=== PATIENT | male | born 1960 | race Hispanic/Latino ===

== ENCOUNTER → 2017-10-22 | Outpatient (CLI) | payer MEDICARE ==
[~2017-10-22] MED LIST: ASPI-555 PO; BUDE10.2 IH; ESOM40CA PO; GLIP1TAB6 PO; IOPAMIDOL-370 75 ML VIAL IV ONE; LISI1TAB13 PO; ROSU40 PO; SERT100T12 PO; VERA360C2 PO; [UNRECOGNIZED DRUG - OTHER] PO
== END | disposition home or self-care (01) ==
LOC: OIH 08:50
PROVIDERS: ATTEND Internal Medicine Cardiovascular Disease
DX: I65.23 Occlusion and stenosis of bilateral carotid arteries (principal)
CPT/HCPCS: 70498; Q9967

== ENCOUNTER → 2018-06-04 | Outpatient (CLI) | payer MEDICARE ==
[~2018-06-04] MED LIST changes: -IOPAMIDOL-370 75 ML VIAL IV ONE
== END | disposition home or self-care (01) ==
LOC: SHCH 10:05
PROVIDERS: ATTEND Internal Medicine Cardiovascular Disease
DX: I65.21 Occlusion and stenosis of right carotid artery (principal); I10 Essential (primary) hypertension; E11.9 Type 2 diabetes mellitus without complications; E78.5 Hyperlipidemia, unspecified; M19.90 Unspecified osteoarthritis, unspecified site; J45.909 Unspecified asthma, uncomplicated; Z87.891 Personal history of nicotine dependence
CPT/HCPCS: 93880

== ENCOUNTER 2018-11-25 12:35 | Inpatient (IN) | payer MEDICARE ==
[~2018-11-25] VITALS: Ht 157.5 cm; Wt 56.7 kg
[2018-11-25 13:27] LABS: BASOPHILS % (AUTO) 0.3 % (0.0-5.0); EOSINOPHILS % (AUTO) 1.1 % (0.0-8.0); HEMATOCRIT 25.4 % (42-54); LYMPHOCYTES % (AUTO) 20.1 % (21.0-51.0); MEAN CORPUSCULAR HEMOGLOBIN 29.9 pg (27.0-33.0); MEAN CORPUSCULAR HGB CONC 33.4 g/dL (32.0-36.0); MEAN CORPUSCULAR VOLUME 89.6 fL (79-99); MONOCYTES % (AUTO) 7.4 % (3.0-13.0); NEUTROPHILS % (AUTO) 71.1 % (40.0-77.0); PLATELET COUNT (AUTO) 560 K/uL (130-400); RED BLOOD CELL COUNT(AUTO) 2.83 MIL/uL (4.50-6.20); RED CELL DISTRIBUTION WIDTH 15.4 % (11.0-15.5)
[2018-11-25 13:32] LABS: ALBUMIN 1.8 g/dL (3.5-5.0); BILIRUBIN,TOTAL 0.2 mg/dL (0.2-1.0); CREATININE 0.7 mg/dL (0.5-1.5); TOTAL PROTEIN, SERUM 6.4 g/dL (6.0-8.3)
[2018-11-25 13:38] LABS: POTASSIUM 2.9 mmol/L (3.5-5.1)
[2018-11-25] MEDS ORDERED: ACETAMINOPHEN EXTRA STRENGTH 500 MG TABLET ONE (14:01)
[2018-11-25] MEDS ORDERED: POTASSIUM CHLORIDE 20 MEQ ERTAB PO ONE (14:47)
[2018-11-25] MEDS ORDERED: POTASSIUM CHLORIDE 10% ELIXIR 20 MEQ/15 ML UDCUP PO PRN (18:45)
[2018-11-25 18:57] LABS: HEMOGLOBIN A1C 8.1 % (4.0-6.0)
[2018-11-25] MEDS: SODIUM CHLORIDE 0.9% 1000ML 1,000 ML IV SCH (19:29)
[2018-11-25] MEDS ORDERED: ACETAMINOPHEN 325 MG TAB PO PRN ×2 (19:30)
[2018-11-25] MEDS ORDERED: DEXTROSE 50%-WATER 50 ML DISP.SYRIN IV PRN (19:30)
[2018-11-25] MEDS ORDERED: GLUCAGON 1MG KIT 1 MG ML IM PRN (19:30)
[2018-11-25] MEDS ORDERED: ONDANSETRON HCL 4 MG/2 ML VIAL IV PRN (19:30)
[2018-11-25] MEDS ORDERED: MAGNESIUM 2GM PREMIX 50ML 50 ML IV ONE (19:42)
[2018-11-25] MEDS: INSULIN HUMULIN R 100 UNIT/ML 3ML SQ SCH (21:00)
[2018-11-25] MEDS: FAMOTIDINE 20MG TAB 20 MG TAB PO SCH (21:00)
[2018-11-25 21:10] LABS: % IRON SATURATION 16.7 % (30-44)
[2018-11-25] MEDS ORDERED: FAMOTIDINE 20MG TAB 20 MG TAB ONE (21:39)
[2018-11-25] MEDS ORDERED: HYDROCODONE/ACETAMINOPHEN 10/325 MG TAB ONE (21:40)
[2018-11-25] MEDS: IPRATROPIUM/ALBUTEROL SULFATE 3 ML SOLUTION IH PRN (21:43)
[2018-11-25 22:47] LABS: CREATININE 0.5 mg/dL (0.5-1.5); POTASSIUM 3.9 mmol/L (3.5-5.1)
--- NOTE | 2018-11-25 23:45 | NUR ---
MULTIPLE WOUNDS/REFER TO PICTURES IN CHART: ST 3-RIGHT UPPER POSTERIOR THIGH-19.0 CM (L) X 10.0 CM (W) ST 3 COCCYX-9.0 CM (L) X 4.0 CM (W) ST 2 LEFT BUTTOCK-8.0 CM (L) X 4.0 CM (W) ST 4 LEFT STUMP- 8.0 CM X 10.0 CM (W) & 4.[address] 2 LEFT HIP 3.5 CM (L) X 1.5 CM (W) ST 2 LEFT LOWER BUTTOCK 3.5 CM (L) X 1.5 CM (W)
--- NOTE | 2018-11-26 01:00 | NUR ---
RECTAL TUBE-PATIENT WITH DIARRHEA AND MULTIPLE BODY WOUNDS. NO IMPACTION NOTED AND TUBE WAS INSERTED TO HELP PROMOTE WOUND HEALING. TUBE WAS IRRIGATED TO CHECK FOR PLACEMENT AND FLUSHED, BUT NOTED WITH PERSISTENT STOOL LEAKAGE AROUND RECTAL TUBE. WILL CONTINUE TO MONITOR.
[2018-11-26 01:15] VITALS: BP 124/60
[2018-11-26] MEDS ORDERED: INSU100I21 SQ (02:30)
[2018-11-26] MEDS ORDERED: HYDR-4453 PO (02:30)
[2018-11-26] MEDS ORDERED: CHOL100018 PO (02:30)
[2018-11-26] MEDS ORDERED: IPRAHFA IH (02:30)
[2018-11-26] MEDS ORDERED: CYAN250010 PO (02:30)
[2018-11-26] MEDS ORDERED: CARV6.25 PO (02:30)
[2018-11-26] MEDS ORDERED: ATOR40TA71 PO (02:30)
[2018-11-26] MEDS: SODIUM CHLORIDE 0.9% 1000ML 1,000 ML IV SCH ×2 (05:29→15:43)
[2018-11-26 05:35] LABS: MEAN CORPUSCULAR HEMOGLOBIN 31.3 pg (27.0-33.0); MEAN CORPUSCULAR HGB CONC 34.5 g/dL (32.0-36.0); MEAN CORPUSCULAR VOLUME 90.6 fL (79-99); PLATELET COUNT (AUTO) 600 K/uL (130-400); RED BLOOD CELL COUNT(AUTO) 2.65 MIL/uL (4.50-6.20); RED CELL DISTRIBUTION WIDTH 15.5 % (11.0-15.5); WHITE BLOOD COUNT (AUTO) 9.2 K/uL (4.8-10.8)
[2018-11-26 05:36] LABS: ALBUMIN 1.7 g/dL (3.5-5.0); BILIRUBIN,TOTAL 0.3 mg/dL (0.2-1.0); CREATININE 0.5 mg/dL (0.5-1.5); MAGNESIUM 1.6 mg/dL (1.80-2.40); POTASSIUM 3.6 mmol/L (3.5-5.1); TOTAL PROTEIN, SERUM 5.9 g/dL (6.0-8.3)
[2018-11-26 05:52] VITALS: BP 135/74
[2018-11-26] MEDS: HYDROCODONE/ACETAMINOPHEN 5/325 MG TAB PO PRN ×2 (06:01→21:52)
[2018-11-26 06:14] LABS: BAND NEUTROPHILS % (MANUAL) 13 % (0-2); EOSINOPHILS % (MANUAL) 1 % (1-6); LYMPHOCYTES % (MANUAL) 9 % (22-44); MAN.DIFF COMMENT-IMPRESSION MANUAL DIFFERENTIAL; MONOCYTES % (MANUAL) 6 % (2-9); PLATELET MORPHOLOGY COMMENT INCREASED; REACTIVE LYMPHOCYTES 1 % (0-0); SEGMENTED NEUTROPHILS % 70 % (40-70)
[2018-11-26] MEDS: INSULIN HUMULIN R 100 UNIT/ML 3ML SQ SCH ×4 (07:30→21:00)
[2018-11-26 08:00] VITALS: BP 147/78
--- NOTE | 2018-11-26 10:00 | NUR ---
DR. MARTINEZ VISITED WITH PATIENT. ORDERS TO CONSULT DR. PARADA. NEW ORDERS RECEIVED AND CARRIED OUT.
[2018-11-26] MEDS ORDERED: VANCOMYCIN PROTOCOL PER PHARMACY IV SCH (10:15)
[2018-11-26] MEDS: FAMOTIDINE 20MG TAB 20 MG TAB PO SCH ×2 (10:48→21:46)
[2018-11-26] MEDS: ENOXAPARIN SODIUM 30 MG/0.3 ML SQ SCH (10:49)
[2018-11-26 12:00] VITALS: BP 145/77
--- NOTE | 2018-11-26 12:00 | NUR ---
DCP CM met with pt discussed dc plans. Pt states he is independent prior to admission, lives at home with spouse and children. Pt has a walker, wheelchair, electric wheelchair, shower chair, active w/[facility] for wound care daily, and has a provider 3hrs daily. Pt feels safe to go back home, spouse and children able to assist with transportation and needs as necessary. DC plan to home once stable. CM to cont to follow up. Addendum: 11/26/18 at 1333 by LEONOR MARTINEZ LVN CM Amended: Links added.
--- NOTE | 2018-11-26 12:04 | NUR ---
GI CONSULT DR. ROBLEDO CALLED REGARDING PATIENT STATUS AND HX. POC IS COLONOSCOPY FOR TOMORROW. PER DR. ROBLEDO, SHE WILL PUT THE ORDERS FOR THIS PROCEDURE. NO NEW ORDERS RECEIVED.
[2018-11-26 12:47] LABS: BASOPHILS % (AUTO) 0.5 % (0.0-5.0); EOSINOPHILS % (AUTO) 0.3 % (0.0-8.0); HEMATOCRIT 25.2 % (42-54); LYMPHOCYTES % (AUTO) 17.2 % (21.0-51.0); MEAN CORPUSCULAR HEMOGLOBIN 29.8 pg (27.0-33.0); MEAN CORPUSCULAR VOLUME 90.4 fL (79-99); MONOCYTES % (AUTO) 9.5 % (3.0-13.0); NEUTROPHILS % (AUTO) 72.5 % (40.0-77.0); PLATELET COUNT (AUTO) 553 K/uL (130-400); RED BLOOD CELL COUNT(AUTO) 2.78 MIL/uL (4.50-6.20); RED CELL DISTRIBUTION WIDTH 15.6 % (11.0-15.5)
[2018-11-26 12:53] LABS: CREATININE 0.4 mg/dL (0.5-1.5); POTASSIUM 3.2 mmol/L (3.5-5.1)
--- NOTE | 2018-11-26 13:00 | NUR ---
RECORDS FROM [facility] REQUESTED.
[2018-11-26 13:02] LABS: INR 1.01 (0.85-1.15); PROTHROMBIN TIME 10.6 SEC (9.6-11.6)
--- NOTE | 2018-11-26 13:23 | NUR ---
CM Note: Declined SNF placement CM met with pt in room, discussed [facility] for placement pt will need abx and woundcare. Per pt to call spouse as she signs his consent, pt states he is unable to make decision and his spouse makes all the decision as sometimes he is not all there in the head. Called spouse in room as per pt request. Spoke to Anitha Alegria discussed [facility], spouse declined placement, spouse stated pt gets depressed if he is not in his normal environment and if he doesn't see his family every day. Spouse agreeable to home w/HH to infuse abx and cont w/woundcare. Primary nurse aware. CM to cont to follow up.
[2018-11-26] MEDS ORDERED: VANCOMYCIN 1.5 GM in SODIUM CHLORIDE 0.9% 250 ML IV ONE (14:00)
[2018-11-26] MEDS ORDERED: COMPOUND IV REFRIGERATED 1 EACH IVSOLN MISC PRN (14:00)
--- NOTE | 2018-11-26 14:48 | NUR ---
RD Notification Patient with Clear Liquid, 75gm CCD, Heart Healthy diet. Patient NPO this AM for imaging. Diet resumed for lunch. Patient with multiple pressure ulcers x 4; Rec to add Ravi BID, 60mL ProMod at Lunch, Vitamin C, Zinc for wound healing support. Patient family agrees. Patient monitored labs: Na 131, CO2 17, Mg 1.60, Alb 1.7, Cl 100, Glu 208, Alk Phos 265. RD to continue to monitor. Please notify RD as nutritional concerns arise. Thank you. Addendum: 11/26/18 at [address] Amended: Links added.
[2018-11-26 16:00] VITALS: BP 153/76
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
[2018-11-26] MEDS ORDERED: PEG 3350/NA SULF,BICARB,CL/KCL 4000 ML SOLN PO SCH ×2 (17:00)
--- NOTE | 2018-11-26 17:06 | NUR ---
[facility] consult Patient assessed as ordered. Patient with multiple pressure areas. Left hip stump with bone exposure and necrotic tissue in wound bed. Recommendation for surgical consult submitted. [facility] recommendation for wound care also submitted. Patient will be transferred to specialty air bed today.
--- NOTE | 2018-11-26 17:30 | NUR ---
DR. PARADA VISITED WITH PATIENT. SINCE PATIENT IS ALREADY SEEING A ORTHOPEDIC IN [place], PLAN IS TO F/U WITH THAT DOCTOR.
[2018-11-26 20:00] VITALS: BP 149/82
[2018-11-26] MEDS: POTASSIUM CHLORIDE 20 MEQ ERTAB PO PRN (21:46)
[2018-11-27] VITALS: BP 135/77
[2018-11-27] MEDS: SODIUM CHLORIDE 0.9% 1000ML 1,000 ML IV SCH ×2 (01:25→11:31)
[2018-11-27] MEDS: POTASSIUM CHLORIDE 20MEQ/100ML 100 ML IV PRN (01:32)
[2018-11-27] MEDS: LIDOCAINE HCL-MPF 1% 2ML VIAL IVP PRN (01:32)
[2018-11-27 03:50] VITALS: BP 142/70
[2018-11-27 05:33] LABS: BASOPHILS % (AUTO) 0.3 % (0.0-5.0); EOSINOPHILS % (AUTO) 0.2 % (0.0-8.0); HEMATOCRIT 25.6 % (42-54); LYMPHOCYTES % (AUTO) 13.5 % (21.0-51.0); MEAN CORPUSCULAR HGB CONC 33.8 g/dL (32.0-36.0); MEAN CORPUSCULAR VOLUME 88.9 fL (79-99); MONOCYTES % (AUTO) 6.9 % (3.0-13.0); NEUTROPHILS % (AUTO) 79.1 % (40.0-77.0); PLATELET COUNT (AUTO) 595 K/uL (130-400); RED BLOOD CELL COUNT(AUTO) 2.88 MIL/uL (4.50-6.20); RED CELL DISTRIBUTION WIDTH 15.5 % (11.0-15.5); WHITE BLOOD COUNT (AUTO) 9.6 K/uL (4.8-10.8)
[2018-11-27 05:45] LABS: CREATININE 0.4 mg/dL (0.5-1.5); POTASSIUM 3.2 mmol/L (3.5-5.1)
[2018-11-27] MEDS: VANCOMYCIN 1GM+NS 250ML 250 ML IV SCH ×2 (06:25→17:04)
[2018-11-27] MEDS: INSULIN HUMULIN R 100 UNIT/ML 3ML SQ SCH ×4 (06:58→21:00)
[2018-11-27 08:00] VITALS: BP 129/63
[2018-11-27] MEDS: FAMOTIDINE 20MG TAB 20 MG TAB PO SCH ×2 (09:00→20:32)
[2018-11-27] MEDS: ENOXAPARIN SODIUM 30 MG/0.3 ML SQ SCH (09:00)
[2018-11-27] MEDS: MAGNESIUM 2GM PREMIX 50ML 50 ML IV PRN ×2 (09:52→20:32)
--- NOTE | 2018-11-27 11:00 | NUR ---
WOUND DRESSING CHANGED PER [facility] RECOMENDATIONS. PATIENT TOLERATED WELL. NORCO ADMINISTERED PER EMAR. FOR PAIN
[2018-11-27] MEDS ORDERED: PEG 3350/NA SULF,BICARB,CL/KCL 4000 ML SOLN PO ONE (11:55)
[2018-11-27 12:00] VITALS: BP 137/74
[2018-11-27] MEDS: POTASSIUM CHLORIDE 20 MEQ ERTAB PO PRN ×5 (12:52→23:15)
[2018-11-27] MEDS: HYDROCODONE/ACETAMINOPHEN 5/325 MG TAB PO PRN ×2 (13:21→20:31)
[2018-11-27 16:00] VITALS: BP 118/53
[2018-11-27] MEDS ORDERED: PEG 3350/NA SULF,BICARB,CL/KCL 4000 ML SOLN PO SCH (19:00)
[2018-11-27 19:31] LABS: CREATININE 0.6 mg/dL (0.5-1.5)
[2018-11-27 19:34] LABS: POTASSIUM 2.8 mmol/L (3.5-5.1)
[2018-11-27 19:48] LABS: INR 1.01 (0.85-1.15); PROTHROMBIN TIME 10.6 SEC (9.6-11.6)
[2018-11-27 19:54] LABS: BASOPHILS % (AUTO) 0.2 % (0.0-5.0); EOSINOPHILS % (AUTO) 0.3 % (0.0-8.0); HEMATOCRIT 25.9 % (42-54); LYMPHOCYTES % (AUTO) 20.8 % (21.0-51.0); MEAN CORPUSCULAR HEMOGLOBIN 30.2 pg (27.0-33.0); MEAN CORPUSCULAR HGB CONC 33.7 g/dL (32.0-36.0); MEAN CORPUSCULAR VOLUME 89.7 fL (79-99); MONOCYTES % (AUTO) 8.5 % (3.0-13.0); NEUTROPHILS % (AUTO) 70.2 % (40.0-77.0); PLATELET COUNT (AUTO) 633 K/uL (130-400); RED BLOOD CELL COUNT(AUTO) 2.89 MIL/uL (4.50-6.20); RED CELL DISTRIBUTION WIDTH 15.6 % (11.0-15.5)
[2018-11-27] MEDS: SODIUM HYPOCHLORITE 0.25% [HALF STRENGTH] 473 ML TOPICAL SOLN TP SCH (20:32)
[2018-11-27 22:07] VITALS: BP 160/77
[2018-11-28] VITALS (22 sets, daily range): BP systolic 113–160; BP diastolic 48–81
[2018-11-28] MEDS: POTASSIUM CHLORIDE 20 MEQ ERTAB PO PRN ×2 (00:27→22:55)
[2018-11-28] MEDS: LIDOCAINE HCL-MPF 1% 2ML VIAL IVP PRN (00:27)
[2018-11-28] MEDS: POTASSIUM CHLORIDE 20MEQ/100ML 100 ML IV PRN (00:27)
[2018-11-28] MEDS: VANCOMYCIN 1GM+NS 250ML 250 ML IV SCH ×2 (05:26→16:10)
[2018-11-28] MEDS: SODIUM CHLORIDE 0.9% 1000ML 1,000 ML IV SCH ×2 (05:27→22:31)
[2018-11-28] MEDS: HYDROCODONE/ACETAMINOPHEN 5/325 MG TAB PO PRN ×3 (05:27→22:55)
[2018-11-28 05:56] LABS: BASOPHILS % (AUTO) 0.4 % (0.0-5.0); EOSINOPHILS % (AUTO) 0.7 % (0.0-8.0); LYMPHOCYTES % (AUTO) 18.6 % (21.0-51.0); MEAN CORPUSCULAR HEMOGLOBIN 30.3 pg (27.0-33.0); MONOCYTES % (AUTO) 10.2 % (3.0-13.0); NEUTROPHILS % (AUTO) 70.1 % (40.0-77.0); PLATELET COUNT (AUTO) 562 K/uL (130-400); RED CELL DISTRIBUTION WIDTH 15.3 % (11.0-15.5); WHITE BLOOD COUNT (AUTO) 7.5 K/uL (4.8-10.8)
[2018-11-28 06:04] LABS: CREATININE 0.4 mg/dL (0.5-1.5); POTASSIUM 3.4 mmol/L (3.5-5.1)
[2018-11-28] MEDS: INSULIN HUMULIN R 100 UNIT/ML 3ML SQ SCH ×3 (06:43→21:00)
--- NOTE | 2018-11-28 08:00 | NUR ---
AM SHIFT ASSESSMENT.NPO FOR COLONOSCOPY TODAY.
[2018-11-28] MEDS: MAGNESIUM 2GM PREMIX 50ML 50 ML IV PRN (08:14)
[2018-11-28] MEDS: ENOXAPARIN SODIUM 30 MG/0.3 ML SQ SCH (08:15)
[2018-11-28] MEDS: FAMOTIDINE 20MG TAB 20 MG TAB PO SCH ×2 (08:15→22:32)
[2018-11-28] MEDS: SODIUM HYPOCHLORITE 0.25% [HALF STRENGTH] 473 ML TOPICAL SOLN TP SCH (09:00)
--- NOTE | 2018-11-28 16:00 | NUR ---
WOUND CARE DONE PER ORDERS IN CHART.SPOUSE IN ROOM AND ASST.
[2018-11-28] MEDS: LEVOFLOXACIN 750 MG/D5W 150 ML 150 ML IV SCH (16:10)
[2018-11-28] MEDS ORDERED: VANCOMYCIN 1.25 GM in SODIUM CHLORIDE 0.9% 250 ML IV SCH (18:00)
--- NOTE | 2018-11-28 18:53 | NUR ---
2 ATTEMPTS MADE TO ACCESS A NEW LINE WITH NO SUCCESS.WILL ASK FOR HELP FROM PM NURSE.
[2018-11-28] MEDS: VANCOMYCIN 1.25 GM in SODIUM CHLORIDE 0.9% 250 ML IV SCH (22:31)
[2018-11-29] VITALS: BP 150/84
[2018-11-29] MEDS ORDERED: HYDROCODONE/ACETAMINOPHEN 5/325 MG TAB PO ONE (03:00)
[2018-11-29] MEDS: HYDROCODONE/ACETAMINOPHEN 5/325 MG TAB PO PRN ×4 (03:03→21:30)
[2018-11-29] MEDS: SODIUM CHLORIDE 0.9% 1000ML 1,000 ML IV SCH ×3 (03:29→23:29)
[2018-11-29 04:00] VITALS: BP 161/90
[2018-11-29 05:15] LABS: MAGNESIUM 1.6 mg/dL (1.80-2.40); POTASSIUM 3.4 mmol/L (3.5-5.1)
[2018-11-29 07:00] VITALS: BP 154/76
[2018-11-29] MEDS: INSULIN HUMULIN R 100 UNIT/ML 3ML SQ SCH ×4 (07:30→21:00)
[2018-11-29] MEDS: ***HM***(Cholecalciferol (Vitamin D3) (Vitamin D3) 1,000 UNIT) PO SCH (09:00)
[2018-11-29] MEDS: FAMOTIDINE 20MG TAB 20 MG TAB PO SCH ×2 (10:14→21:16)
[2018-11-29] MEDS: CYANOCOBALAMIN (VITAMIN B-12) 1,000 MCG TABLET PO SCH (10:14)
[2018-11-29] MEDS: SODIUM HYPOCHLORITE 0.25% [HALF STRENGTH] 473 ML TOPICAL SOLN TP SCH (10:14)
[2018-11-29] MEDS: CARVEDILOL 6.25 MG TABLET PO SCH ×2 (10:15→21:16)
[2018-11-29] MEDS: ENOXAPARIN SODIUM 30 MG/0.3 ML SQ SCH (10:16)
[2018-11-29] MEDS: VANCOMYCIN 1.25 GM in SODIUM CHLORIDE 0.9% 250 ML IV SCH ×2 (10:46→21:16)
[2018-11-29 11:00] VITALS: BP 154/75
[2018-11-29] MEDS: LEVOFLOXACIN 750 MG/D5W 150 ML 150 ML IV SCH (14:30)
[2018-11-29 16:00] VITALS: BP 158/79
[2018-11-29 19:00] VITALS: BP 155/81
[2018-11-29] MEDS: ATORVASTATIN CALCIUM 40 MG TABLET PO SCH (21:16)
[2018-11-30] VITALS: BP 131/75
[2018-11-30] MEDS ORDERED: TEMAZEPAM 15 MG CAPSULE ONE (00:26)
[2018-11-30] MEDS ORDERED: TEMAZEPAM 15 MG CAPSULE PO ONE (00:30)
[2018-11-30 04:00] VITALS: BP 144/73
[2018-11-30] MEDS: INSULIN HUMULIN R 100 UNIT/ML 3ML SQ SCH ×4 (06:38→21:00)
[2018-11-30 06:39] LABS: BASOPHILS % (AUTO) 0.3 % (0.0-5.0); EOSINOPHILS % (AUTO) 1.2 % (0.0-8.0); LYMPHOCYTES % (AUTO) 23.8 % (21.0-51.0); MEAN CORPUSCULAR HEMOGLOBIN 29.6 pg (27.0-33.0); MEAN CORPUSCULAR HGB CONC 33.1 g/dL (32.0-36.0); MEAN CORPUSCULAR VOLUME 89.6 fL (79-99); MONOCYTES % (AUTO) 9.2 % (3.0-13.0); NEUTROPHILS % (AUTO) 65.5 % (40.0-77.0); PLATELET COUNT (AUTO) 560 K/uL (130-400); RED BLOOD CELL COUNT(AUTO) 2.57 MIL/uL (4.50-6.20); RED CELL DISTRIBUTION WIDTH 14.9 % (11.0-15.5); WHITE BLOOD COUNT (AUTO) 6.4 K/uL (4.8-10.8)
[2018-11-30 06:49] LABS: CREATININE 0.3 mg/dL (0.5-1.5); MAGNESIUM 1.4 mg/dL (1.80-2.40)
[2018-11-30 07:00] VITALS: BP 151/72
[2018-11-30 08:11] LABS: POTASSIUM 2.7 mmol/L (3.5-5.1)
[2018-11-30] MEDS: ***HM***(Cholecalciferol (Vitamin D3) (Vitamin D3) 1,000 UNIT) PO SCH (09:00)
[2018-11-30] MEDS: CYANOCOBALAMIN (VITAMIN B-12) 1,000 MCG TABLET PO SCH (09:00)
[2018-11-30] MEDS: POTASSIUM CHLORIDE 20 MEQ ERTAB PO PRN ×5 (09:01→16:47)
[2018-11-30] MEDS: FAMOTIDINE 20MG TAB 20 MG TAB PO SCH ×2 (09:01→21:07)
[2018-11-30] MEDS: POTASSIUM CHLORIDE 20MEQ/100ML 100 ML IV PRN ×2 (09:02→16:48)
[2018-11-30] MEDS: LIDOCAINE HCL-MPF 1% 2ML VIAL IVP PRN ×2 (09:02→16:47)
[2018-11-30] MEDS: CARVEDILOL 6.25 MG TABLET PO SCH ×2 (09:02→21:07)
[2018-11-30] MEDS: ENOXAPARIN SODIUM 30 MG/0.3 ML SQ SCH (09:04)
[2018-11-30] MEDS: SODIUM HYPOCHLORITE 0.25% [HALF STRENGTH] 473 ML TOPICAL SOLN TP SCH (09:04)
[2018-11-30] MEDS: VANCOMYCIN 1.25 GM in SODIUM CHLORIDE 0.9% 250 ML IV SCH (10:59)
[2018-11-30 11:00] VITALS: BP 147/76
--- NOTE | 2018-11-30 11:38 | NUR ---
RD Follow-up Note Patient with multiple severe wounds; Rec to add Ravi BID and 60mL ProMod at Lunch. Rec to add vitamin C and Zinc daily for wound healing support. Patient with poor PO intake; Rec to add Glucerna TID with meals for increased oral intake. Patient LBM 11/29/18. Patient monitored labs: Ba 135, K 3.4, BUN 4, Cr 0.4, Glu 122, Ca 7.8, Mg 1.60. RD to continue to monitor. Please notify RD as nutritional concerns arise. Thank you. Addendum: 11/30/18 at [address] RD Amended: Links added.
[2018-11-30] MEDS ORDERED: VANCOMYCIN 1.25 GM in SODIUM CHLORIDE 0.9% 250 ML IV SCH (12:15)
[2018-11-30] MEDS: HYDROCODONE/ACETAMINOPHEN 5/325 MG TAB PO PRN ×3 (12:49→23:13)
[2018-11-30] MEDS: LEVOFLOXACIN 750 MG/D5W 150 ML 150 ML IV SCH (14:33)
[2018-11-30 16:00] VITALS: BP 136/70
[2018-11-30 19:00] VITALS: BP 158/72
--- NOTE | 2018-11-30 20:30 | NUR ---
RECTAL TUBE RECTAL TUBE DISCONTINUED ORDERED. PATIENT TOLERATED WELL
[2018-11-30] MEDS: ATORVASTATIN CALCIUM 40 MG TABLET PO SCH (21:07)
--- NOTE | 2018-11-30 22:00 | NUR ---
DRESSING CHANGE SPOUSE DID DRESSING CHANGE. PATIENT MEDICATED FOR PAIN. PATIENT TOLERATED FAIRLY WELL
[2018-11-30] MEDS: IPRATROPIUM/ALBUTEROL SULFATE 3 ML SOLUTION IH PRN (22:32)
[2018-11-30] MEDS: VANCOMYCIN 1GM+NS 250ML 250 ML IV SCH (23:05)
[2018-12-01] VITALS: BP 134/73
[2018-12-01 04:00] VITALS: BP 135/57
[2018-12-01 05:31] LABS: MAGNESIUM 1.4 mg/dL (1.80-2.40)
[2018-12-01] MEDS: INSULIN HUMULIN R 100 UNIT/ML 3ML SQ SCH ×2 (06:15→11:30)
[2018-12-01 07:06] LABS: BASOPHILS % (AUTO) 0.6 % (0.0-5.0); HEMATOCRIT 21.3 % (42-54); LYMPHOCYTES % (AUTO) 27.1 % (21.0-51.0); MEAN CORPUSCULAR HEMOGLOBIN 30.4 pg (27.0-33.0); MEAN CORPUSCULAR VOLUME 92.1 fL (79-99); MONOCYTES % (AUTO) 10.3 % (3.0-13.0); PLATELET COUNT (AUTO) 526 K/uL (130-400); RED BLOOD CELL COUNT(AUTO) 2.31 MIL/uL (4.50-6.20); RED CELL DISTRIBUTION WIDTH 15.4 % (11.0-15.5); WHITE BLOOD COUNT (AUTO) 5.9 K/uL (4.8-10.8)
[2018-12-01 07:13] LABS: POTASSIUM 3.7 mmol/L (3.5-5.1)
[2018-12-01 07:14] LABS: CREATININE 0.5 mg/dL (0.5-1.5)
[2018-12-01 08:14] VITALS: BP 163/49
[2018-12-01] MEDS: ENOXAPARIN SODIUM 30 MG/0.3 ML SQ SCH (09:00)
[2018-12-01] MEDS: ***HM***(Cholecalciferol (Vitamin D3) (Vitamin D3) 1,000 UNIT) PO SCH (09:00)
[2018-12-01] MEDS: CYANOCOBALAMIN (VITAMIN B-12) 1,000 MCG TABLET PO SCH (10:29)
[2018-12-01] MEDS: FAMOTIDINE 20MG TAB 20 MG TAB PO SCH (10:29)
[2018-12-01] MEDS: CARVEDILOL 6.25 MG TABLET PO SCH (10:30)
[2018-12-01] MEDS: VANCOMYCIN 1GM+NS 250ML 250 ML IV SCH (10:38)
[2018-12-01 11:29] LABS: HEMATOCRIT 23.1 % (42-54)
[2018-12-01 12:57] VITALS: BP 155/73
[2018-12-01] MEDS: LEVOFLOXACIN 750 MG/D5W 150 ML 150 ML IV SCH (14:47)
[2018-12-01] MEDS: HYDROCODONE/ACETAMINOPHEN 5/325 MG TAB PO PRN (14:49)
--- NOTE | 2018-12-01 16:00 | NUR ---
NOTE DISCHARGE INSTRUCTIONS WERE GIVEN TO PATIENT AND . DID DRESSING CHANGES TO STUMPS AND SACRAL AREA BECAUSE PATIETN HAD BM AND ACCIDENTALLY SOILED. DID NOT AGREE TO REMOVE DRESSING TO TAKE NEW PICTURES. REFER TO DC SUMMARY FOR DETAILS.
== END 2018-12-01 16:30 | disposition home or self-care (01) | DRG 391 ==
LOC: EDH 12:35 → EDHIP 18:42 → 3BH 22:36
PROVIDERS: ADMIT Internal Medicine; ATTEND Internal Medicine
DX: K52.9 Noninfective gastroenteritis and colitis, unspecified (principal); L89.153 Pressure ulcer of sacral region, stage 3; L89.94 Pressure ulcer of unspecified site, stage 4; G82.50 Quadriplegia, unspecified; J96.90 Respiratory failure, unspecified, unspecified whether with hypoxia or hypercapnia; T87.40 Infection of amputation stump, unspecified extremity; T81.30XA Disruption of wound, unspecified, initial encounter; M86.9 Osteomyelitis, unspecified; B37.0 Candidal stomatitis; L97.909 Non-pressure chronic ulcer of unspecified part of unspecified lower leg with unspecified severity; E86.0 Dehydration; E87.6 Hypokalemia; E83.42 Hypomagnesemia; D64.9 Anemia, unspecified; R79.89 Other specified abnormal findings of blood chemistry; L89.322 Pressure ulcer of left buttock, stage 2; E11.65 Type 2 diabetes mellitus with hyperglycemia; E11.51 Type 2 diabetes mellitus with diabetic peripheral angiopathy without gangrene; E11.69 Type 2 diabetes mellitus with other specified complication; Y83.5 Amputation of limb(s) as the cause of abnormal reaction of the patient, or of later complication, without mention of misadventure at the time of the procedure; E78.5 Hyperlipidemia, unspecified; F17.210 Nicotine dependence, cigarettes, uncomplicated; G89.29 Other chronic pain; N18.9 Chronic kidney disease, unspecified; E11.22 Type 2 diabetes mellitus with diabetic chronic kidney disease; I12.9 Hypertensive chronic kidney disease with stage 1 through stage 4 chronic kidney disease, or unspecified chronic kidney disease; J45.909 Unspecified asthma, uncomplicated; Y92.89 Other specified places as the place of occurrence of the external cause; Z74.01 Bed confinement status; Z99.3 Dependence on wheelchair; Z89.612 Acquired absence of left leg above knee; Z89.611 Acquired absence of right leg above knee; Z83.3 Family history of diabetes mellitus; Z82.49 Family history of ischemic heart disease and other diseases of the circulatory system; Z82.3 Family history of stroke
CPT/HCPCS: 36415; 74018; 80048; 80053; 80202; 82270; 82728; 82948; 83036; 83540; 83550; 83630; 83735; 84132; 85014; 85018; 85025; 85610; 87070; 87076; 87077; 87186; 87324; 87641; 93005; 94640; 94664; G0378; J1650; J1815; J1956; J2405; J3370; J3475; J3480; J3490; J7030

== ENCOUNTER → 2019-04-09 | Outpatient (CLI) | payer MEDICARE ==
[~2019-04-09] MED LIST changes: +ATOR40TA71 PO; -BUDE10.2 IH; +CARV6.25 PO; +CHOL100018 PO; +CYAN250010 PO; -GLIP1TAB6 PO; +HYDR-4453 PO; +INSU100I21 SQ; +IPRAHFA IH; -LISI1TAB13 PO; -ROSU40 PO; -SERT100T12 PO; -VERA360C2 PO; -[UNRECOGNIZED DRUG - OTHER] PO
== END | disposition home or self-care (01) ==
LOC: RAH 12:09
PROVIDERS: ATTEND Internal Medicine Cardiovascular Disease
DX: I11.0 Hypertensive heart disease with heart failure (principal); I50.22 Chronic systolic (congestive) heart failure; J90 Pleural effusion, not elsewhere classified
CPT/HCPCS: 71046

== ENCOUNTER → 2019-07-14 | Outpatient (CLI) | payer MEDICARE | END | disposition home or self-care (01) | LOC: RAH 10:04 | PROVIDERS: ATTEND Internal Medicine Cardiovascular Disease | DX: I07.1 Rheumatic tricuspid insufficiency (principal); I11.0 Hypertensive heart disease with heart failure; I50.22 Chronic systolic (congestive) heart failure | CPT/HCPCS: 93306 ==